=== PATIENT | male | born 1950 ===

== ENCOUNTER → 2018-04-18 09:56 | Outpatient (CLI) | payer OTHER | END | disposition home or self-care (01) | LOC: LAB 09:56 | DX: M50.10 Cervical disc disorder with radiculopathy, unspecified cervical region (principal); M51.34 Other intervertebral disc degeneration, thoracic region; M50.23 Other cervical disc displacement, cervicothoracic region; D68.8 Other specified coagulation defects; I10 Essential (primary) hypertension ==

== ENCOUNTER → 2018-05-04 | Day surgery (SDC) | payer OTHER ==
[~2018-05-04] MED LIST: AMILODIPINE PO; DOXAZOSIN MESYLA2 MG PO; IRBESARTAN-HCT1 EAC1 PO; METROPOLO PO
== END | disposition home or self-care (01) ==
LOC: ADM 04-30 09:15 → CIR.AMB 07:25
DX: M50.121 Cervical disc disorder at C4-C5 level with radiculopathy (principal)